=== PATIENT | female | born 1945 | race Caucasian/White ===

== ENCOUNTER → 2023-11-26 09:51 | Outpatient (REF) | payer MEDICARE, OTHER, SELFPAY ==
[2023-11-26 13:26] LABS: % Basophils 0.5 % (0-2); % Eosinophils 3.3 % (0-6); % Immature Granulocytes 0.5 % (0-0.5); % Lymphocytes 27.7 % (20.5-51.1); % Monocytes 8.1 % (1.7-9.3); % Neutrophils 59.9 % (42.2-75.2); Absolute Eosinophils 0.3 10^3/uL (0-0.7); Absolute Lymphocytes 2.1 10^3/uL (1.2-3.4); Absolute Monocytes 0.6 10^3/uL (0.1-0.6); Absolute Neutrophils 4.5 10^3/uL (1.4-6.5); Hematocrit 40.3 % (37.0-47.0); Hemoglobin 13.3 g/dL (12.0-16.0); Mean Corpuscular Hgb 28.6 pg (27.0-31.0); Mean Corpuscular Volume 86.7 fL (81.0-99.0); Mean Platelet Volume 9.4 fL (7.4-10.4); Nucleated Red Blood Cells % 0 %; Platelet Count 225 10^3/uL (130-400); Red Blood Cell Count 4.65 10^6/uL (4.20-5.40); Red Cell Dist. Width 13.8 % (11.5-14.5); White Blood Cell Count 7.6 10^3/uL (4.8-10.8)
[2023-11-26 13:52] LABS: ALT (SGPT) 35 U/L (0-35); AST (SGOT) 40 U/L (14-36); Albumin 4.5 g/dl (3.5-5.0); Alkaline Phosphatase 98 U/L (38-126); Blood Urea Nitrogen 19 mg/dl (7-17); Calcium 9.9 mg/dl (8.4-10.2); Carbon Dioxide 29 mmol/L (22-30); Chloride 101 mmol/L (98-107); Glucose 116 mg/dl (70-99); HDL Cholesterol 46 mg/dl; LDL Cholesterol, Calculated 79 mg/dl; Potassium 4.4 mmol/L (3.5-5.1); Sodium 143 mmol/L (135-145); Total Bilirubin 0.9 mg/dl (0.2-1.3); Total Cholesterol 158 mg/dl (50-199); Total Protein 7.2 g/dl (6.3-8.2); Triglyceride 169 mg/dl (10-149); Very Low Density Lipoprotein 33 mg/dl (0-30); eGFR > 60.00
[2023-11-26 13:59] LABS: Vitamin D, 25-OH*** 41.3 ng/mL (30-80)
[2023-11-26 14:13] LABS: TSH Reflex To Free T4 0.97 uIU/ml (0.47-4.68)
[2023-11-26 14:43] LABS: Glycohemoglobin (HgbA1c) 6.1 % (4.0-5.6)
== END ==
LOC: HWLAB 09:51
PROVIDERS: ATTENDING PHYSICIAN Nurse Practitioner Family
DX: Z00.00 Encounter for general adult medical examination without abnormal findings (principal); I10 Essential (primary) hypertension; R73.03 Prediabetes; E55.9 Vitamin D deficiency, unspecified; J40 Bronchitis, not specified as acute or chronic; E78.5 Hyperlipidemia, unspecified; L40.9 Psoriasis, unspecified; R94.5 Abnormal results of liver function studies; E66.01 Morbid (severe) obesity due to excess calories; Z12.31 Encounter for screening mammogram for malignant neoplasm of breast; Z13.820 Encounter for screening for osteoporosis; Z12.11 Encounter for screening for malignant neoplasm of colon; M54.41 Lumbago with sciatica, right side; L98.9 Disorder of the skin and subcutaneous tissue, unspecified
CPT/HCPCS: 36415; 80053; 80061; 82306; 83036; 84443; 85025

== ENCOUNTER → 2023-12-09 14:28 | Outpatient (REF) | payer MEDICARE, OTHER, SELFPAY | LOC: PAVMRI 14:28 | PROVIDERS: ATTENDING PHYSICIAN Nurse Practitioner Family; REFERRING PHYSICIAN Orthopaedic Surgery | DX: M54.41 Lumbago with sciatica, right side (principal) | CPT/HCPCS: 72148 ==

== ENCOUNTER → 2023-12-11 13:37 | Outpatient (REF) | payer MEDICARE, OTHER, SELFPAY | LOC: HWWDC 13:37 | PROVIDERS: ATTENDING PHYSICIAN Nurse Practitioner Family | DX: Z12.31 Encounter for screening mammogram for malignant neoplasm of breast (principal); Z78.0 Asymptomatic menopausal state | CPT/HCPCS: 77080 ==

== ENCOUNTER → 2024-09-10 10:12 | Outpatient (REF) | payer MEDICARE, OTHER, SELFPAY | LOC: DHSLP 10:12 | PROVIDERS: ATTENDING PHYSICIAN Internal Medicine; FAMILY PHYSICIAN Nurse Practitioner Family | DX: G47.33 Obstructive sleep apnea (adult) (pediatric) (principal) | CPT/HCPCS: 95800 ==

== ENCOUNTER → 2024-12-24 10:14 | Outpatient (REF) | payer MEDICARE, OTHER, SELFPAY ==
[2024-12-24 12:54] LABS: Hematocrit 39.6 % (37.0-47.0); Hemoglobin 13.2 g/dL (12.0-16.0); Mean Corp Hgb Conc. 33.3 g/dL (33.0-37.0); Mean Corpuscular Volume 91.0 fL (81.0-99.0); Nucleated Red Blood Cells % 0 %; Platelet Count 214 10^3/uL (130-400); Red Cell Dist. Width 13.4 % (11.5-14.5)
[2024-12-24 13:09] LABS: ALT (SGPT) 24 U/L (0-35); AST (SGOT) 31 U/L (14-36); Albumin 4.0 g/dl (3.5-5.0); Alkaline Phosphatase 84 U/L (38-126); Blood Urea Nitrogen 18 mg/dl (7-17); Calcium 9.6 mg/dl (8.4-10.2); Carbon Dioxide 31 mmol/L (22-30); Chloride 101 mmol/L (98-107); Glucose 111 mg/dl (70-99); HDL Cholesterol 48 mg/dl; LDL Cholesterol, Calculated 52 mg/dl; Potassium 3.4 mmol/L (3.5-5.1); Sodium 140 mmol/L (135-145); Total Protein 6.5 g/dl (6.3-8.2); Very Low Density Lipoprotein 23 mg/dl (0-30); eGFR 58.02
[2024-12-24 13:19] LABS: Vitamin D, 25-OH*** 32.2 ng/mL (30-80)
[2024-12-24 13:45] LABS: Glycohemoglobin (HgbA1c) 6.0 % (4.0-5.9)
== END ==
LOC: HWWDC 10:14
PROVIDERS: ATTENDING PHYSICIAN Nurse Practitioner Family
DX: Z12.31 Encounter for screening mammogram for malignant neoplasm of breast (principal); Z00.00 Encounter for general adult medical examination without abnormal findings; I10 Essential (primary) hypertension; Z13.31 Encounter for screening for depression; R73.03 Prediabetes; E55.9 Vitamin D deficiency, unspecified; J40 Bronchitis, not specified as acute or chronic; E78.5 Hyperlipidemia, unspecified; L40.9 Psoriasis, unspecified; R94.5 Abnormal results of liver function studies; E66.01 Morbid (severe) obesity due to excess calories; Z13.820 Encounter for screening for osteoporosis; Z12.11 Encounter for screening for malignant neoplasm of colon; Z23 Encounter for immunization
CPT/HCPCS: 36415; 80053; 80061; 82306; 83036; 84439; 84443; 85025